=== PATIENT | male | born 1955 | race Caucasian/White ===

== ENCOUNTER → 2018-07-12 03:50 | Outpatient (CLI) | payer OTHER, SELFPAY ==
[2018-07-12 14:00] LABS: INR 2.4 (1.0-3.5); Prothrombin Time 22.5 sec (9.3-10.8)
== END ==
PROVIDERS: PCP Family Medicine; Visit Provider Family Medicine
DX: I26.99 Other pulmonary embolism without acute cor pulmonale (principal); Z79.01 Long term (current) use of anticoagulants
CPT/HCPCS: 36415; 85610

== ENCOUNTER 2018-08-17 00:06 | Outpatient (CLI) | payer OTHER, SELFPAY ==
[2018-08-17 10:07] LABS: Absolute Basophil Count 0.04 k/cumm (0.0-0.2); Absolute Eosinophil Count 0.11 k/cumm (0.0-0.7); Absolute Lymphocyte Count 1.87 k/cumm (1.2-3.4); Absolute Monocyte Count 0.47 k/cumm (0.11-0.7); Absolute Neutrophil Count 3.54 k/cumm (1.2-6.7); Basophils % 0.7; Eosinophils % 1.8; HCT 45.6 % (40.0-50.0); Mean Corp. HGB Concentration 35.1 g/dL (32.0-36.0); Mean Corpuscular Hemoglobin 32.2 pg (27.0-33.0); Mean Corpuscular Volume 91.8 fL (80-95); Mean Platelet Volume 10.5 fL (8.0-11.0); Monocytes % 7.8; Neutrophils % 58.7; Platelet Count 169 x1000/uL (130-400); RBC 4.97 m/cumm (4.50-6.00); RBC Distribution Width 12.9 % (11.8-14.1); White Blood Cell Count 6.03 k/cumm (4.4-10.8)
[2018-08-17 10:11] LABS: INR 2.2 (1.0-3.5); Prothrombin Time 21.2 sec (9.3-10.8)
[2018-08-17 11:47] LABS: Anion Gap 8.2 mmol/L (3-11); BUN 19 mg/dL (7-18); CO2 26.8 mmol/L (21.0-32.0); CREATININE 1.23 mg/dL (0.70-1.30); Chloride 105 mmol/L (98-107); Estimated GFR 59.06 (mL/min/1.73m2); Glucose 85 mg/dL (70-100); PHOSPHORUS 2.2 mg/dL (2.6-4.7); Potassium 4.6 mmol/L (3.5-5.1); Sodium 140 mmol/L (136-145)
[2018-08-17 12:01] LABS: Cholesterol 168 mg/dL (50-200); HDL Cholesterol 40 mg/dL (40-60); LDL CHOLESTEROL 104 mg/dL (<100); Triglyceride 128 mg/dL (30-150)
[2018-08-18 08:21] LABS: Hemoglobin A1C 5.3 % (4.5-6.2)
== END 2018-08-17 00:26 ==
PROVIDERS: PCP Family Medicine; Visit Provider Family Medicine
DX: I26.99 Other pulmonary embolism without acute cor pulmonale (principal); Z79.01 Long term (current) use of anticoagulants; E78.5 Hyperlipidemia, unspecified; I10 Essential (primary) hypertension; E74.39 Other disorders of intestinal carbohydrate absorption; E83.39 Other disorders of phosphorus metabolism
CPT/HCPCS: 36415; 80048; 80061; 83721; 85027; 83036; 84100; 85025; 85610

== ENCOUNTER 2018-09-21 00:09 | Outpatient (CLI) | payer OTHER, SELFPAY ==
[2018-09-21 11:01] LABS: INR 2.5 (1.0-3.5); Prothrombin Time 23.8 sec (9.3-10.8)
== END 2018-09-21 00:29 ==
PROVIDERS: PCP Family Medicine; Visit Provider Family Medicine
DX: I26.99 Other pulmonary embolism without acute cor pulmonale (principal); Z79.01 Long term (current) use of anticoagulants
CPT/HCPCS: 85610

== ENCOUNTER 2018-10-19 00:34 | Outpatient (CLI) | payer OTHER, SELFPAY ==
[2018-10-19 11:18] LABS: INR 2.1 (1.0-3.5); Prothrombin Time 19.9 sec (9.3-10.8)
== END 2018-10-19 00:54 ==
PROVIDERS: PCP Family Medicine; Visit Provider Family Medicine
DX: I26.99 Other pulmonary embolism without acute cor pulmonale (principal); Z79.01 Long term (current) use of anticoagulants
CPT/HCPCS: 36415; 85610

== ENCOUNTER 2018-11-27 12:55 | Outpatient (CLI) | payer OTHER, SELFPAY ==
[2018-11-27 14:40] LABS: INR 2.1 (1.0-3.5); Prothrombin Time 21.2 sec (9.3-11.0)
== END 2018-11-27 13:15 ==
PROVIDERS: PCP Family Medicine; Visit Provider Family Medicine
DX: I26.99 Other pulmonary embolism without acute cor pulmonale (principal); Z79.01 Long term (current) use of anticoagulants
CPT/HCPCS: 36415; 85610

== ENCOUNTER 2018-12-28 08:44 | Outpatient (CLI) | payer OTHER, SELFPAY ==
[2018-12-28 11:16] LABS: INR 2.2 (0.9-1.1); Prothrombin Time 22.2 sec (9.3-11.0)
== END 2018-12-28 09:04 ==
PROVIDERS: PCP Family Medicine; Visit Provider Family Medicine
DX: I26.99 Other pulmonary embolism without acute cor pulmonale (principal); Z79.01 Long term (current) use of anticoagulants
CPT/HCPCS: 36415; 85610

== ENCOUNTER 2019-01-27 07:02 | Outpatient (CLI) | payer OTHER, SELFPAY | END 2019-01-27 07:22 | PROVIDERS: PCP Family Medicine; Visit Provider Family Medicine | DX: I26.99 Other pulmonary embolism without acute cor pulmonale (principal); Z79.01 Long term (current) use of anticoagulants | CPT/HCPCS: 36415; 85610 ==

== ENCOUNTER 2019-02-18 10:26 | Outpatient (CLI) | payer OTHER, SELFPAY ==
[2019-02-18 13:31] LABS: INR 2.3 (0.9-1.1); Prothrombin Time 22.9 sec (9.3-11.0)
== END 2019-02-18 10:46 ==
PROVIDERS: PCP Family Medicine; Visit Provider Family Medicine
DX: I26.99 Other pulmonary embolism without acute cor pulmonale (principal); Z79.01 Long term (current) use of anticoagulants
CPT/HCPCS: 36415; 85610

== ENCOUNTER 2019-03-11 13:19 | Outpatient (CLI) | payer OTHER, SELFPAY ==
[2019-03-11 15:01] LABS: Prothrombin Time 20.5 sec (9.3-11.0)
== END 2019-03-11 13:39 ==
PROVIDERS: PCP Family Medicine; Visit Provider Family Medicine
DX: I26.99 Other pulmonary embolism without acute cor pulmonale (principal); Z79.01 Long term (current) use of anticoagulants
CPT/HCPCS: 36415; 85610

== ENCOUNTER 2019-04-11 07:41 | Outpatient (CLI) | payer OTHER, SELFPAY ==
[2019-04-11 16:35] LABS: INR 1.6 (0.9-1.1); Prothrombin Time 16.3 sec (9.3-11.0)
== END 2019-04-11 08:01 ==
PROVIDERS: PCP Family Medicine; Visit Provider Family Medicine
DX: I26.99 Other pulmonary embolism without acute cor pulmonale (principal); Z79.01 Long term (current) use of anticoagulants
CPT/HCPCS: 36415; 85610

== ENCOUNTER 2019-04-26 09:02 | Outpatient (CLI) | payer OTHER, SELFPAY ==
[2019-04-26 09:42] LABS: Prothrombin Time 19.7 sec (9.3-11.0)
== END 2019-04-26 09:22 ==
PROVIDERS: PCP Family Medicine; Visit Provider Family Medicine
DX: I26.99 Other pulmonary embolism without acute cor pulmonale (principal); Z79.01 Long term (current) use of anticoagulants
CPT/HCPCS: 36415; 85610

== ENCOUNTER 2019-05-20 01:45 | Outpatient (CLI) | payer OTHER, SELFPAY ==
[2019-05-20 14:01] LABS: INR 2.8 (0.9-1.1); Prothrombin Time 28.6 sec (9.3-11.0)
== END 2019-05-20 02:05 ==
PROVIDERS: PCP Family Medicine; Visit Provider Family Medicine
DX: I26.99 Other pulmonary embolism without acute cor pulmonale (principal); Z79.01 Long term (current) use of anticoagulants
CPT/HCPCS: 36415; 85610

== ENCOUNTER 2019-06-19 01:59 | Outpatient (CLI) | payer OTHER, SELFPAY ==
[2019-06-19 13:12] LABS: INR 2.3 (0.9-1.1); Prothrombin Time 23.5 sec (9.3-11.0)
== END 2019-06-19 02:19 ==
PROVIDERS: PCP Family Medicine; Visit Provider Family Medicine
DX: I26.99 Other pulmonary embolism without acute cor pulmonale (principal); Z79.01 Long term (current) use of anticoagulants
CPT/HCPCS: 36415; 85610

== ENCOUNTER 2019-08-01 03:51 | Outpatient (CLI) | payer OTHER, SELFPAY ==
[2019-08-01 12:34] LABS: Abs Immature Grans 0.01 k/cumm (0.0-0.09); Absolute Basophil Count 0.05 k/cumm (0.0-0.2); Absolute Eosinophil Count 0.15 k/cumm (0.0-0.7); Absolute Lymphocyte Count 2.08 k/cumm (1.2-3.4); Absolute Monocyte Count 0.68 k/cumm (0.11-0.7); Absolute Neutrophil Count 4.13 k/cumm (1.2-6.7); Basophils % 0.7; Eosinophils % 2.1; HCT 46.5 % (40.0-50.0); HGB 16.4 g/dL (13.5-17.5); Immature Grans % 0.1; Lymphocytes % 29.3; Mean Corp. HGB Concentration 35.3 g/dL (32.0-36.0); Mean Corpuscular Hemoglobin 32.4 pg (27.0-33.0); Mean Corpuscular Volume 91.9 fL (80-95); Mean Platelet Volume 10.4 fL (8.0-11.0); Monocytes % 9.6; Neutrophils % 58.2; Platelet Count 201 x1000/uL (130-400); RBC 5.06 m/cumm (4.50-6.00); RBC Distribution Width 12.6 % (11.8-14.1)
[2019-08-01 14:01] LABS: ALT 29 U/L (16-63); AST 20 U/L (15-37); Albumin 4.1 g/dL (3.4-5.0); Alkaline Phosphatase 92 U/L (46-116); Anion Gap 10.8 mmol/L (3-11); BUN 26 mg/dL (7-18); Bilirubin, Total 0.8 mg/dL (0.2-1.0); CO2 26.2 mmol/L (21.0-32.0); CREATININE 1.34 mg/dL (0.70-1.30); Calcium 10.1 mg/dL (8.5-10.1); Calculated LDL 114 mg/dL; Chloride 103 mmol/L (98-107); Cholesterol 185 mg/dL (50-200); Estimated GFR 53.33 (mL/min/1.73m2); Glucose 90 mg/dL (70-100); HDL Cholesterol 40 mg/dL (40-60); Potassium 4.6 mmol/L (3.5-5.1); Sodium 140 mmol/L (136-145); Total Protein 7.7 g/dL (6.4-8.2); Triglyceride 155 mg/dL (30-150)
[2019-08-01 14:59] LABS: PHOSPHORUS 3.1 mg/dL (2.6-4.7)
== END 2019-08-01 04:11 ==
PROVIDERS: PCP Family Medicine; Visit Provider Family Medicine
DX: M25.551 Pain in right hip (principal); I10 Essential (primary) hypertension; E78.5 Hyperlipidemia, unspecified; E55.9 Vitamin D deficiency, unspecified; E83.39 Other disorders of phosphorus metabolism
CPT/HCPCS: 36415; 80053; 80061; 82306; 84100; 85025

== ENCOUNTER 2019-08-11 01:30 | Outpatient (CLI) | payer OTHER, SELFPAY ==
[2019-08-11 09:21] LABS: INR 2.1 (0.9-1.1); Prothrombin Time 21.4 sec (9.3-11.0)
== END 2019-08-11 01:50 ==
PROVIDERS: PCP Family Medicine; Visit Provider Family Medicine
DX: I26.99 Other pulmonary embolism without acute cor pulmonale (principal); Z79.01 Long term (current) use of anticoagulants
CPT/HCPCS: 36415; 85610

== ENCOUNTER 2019-09-09 08:19 | Outpatient (CLI) | payer OTHER, SELFPAY ==
[2019-09-09 12:57] LABS: Prothrombin Time 21.2 sec (9.3-11.0)
[2019-09-09 14:02] LABS: INR 2.1 (0.9-1.1)
== END 2019-09-09 08:39 ==
PROVIDERS: PCP Family Medicine; Visit Provider Family Medicine
DX: I26.99 Other pulmonary embolism without acute cor pulmonale (principal); Z79.01 Long term (current) use of anticoagulants
CPT/HCPCS: 36415; 85610

== ENCOUNTER 2019-10-15 08:24 | Outpatient (CLI) | payer OTHER, SELFPAY ==
[2019-10-15 10:32] LABS: INR 2.5 (0.9-1.1); Prothrombin Time 24.6 sec (9.3-11.0)
== END 2019-10-15 08:44 ==
PROVIDERS: PCP Family Medicine; Visit Provider Family Medicine
DX: I26.99 Other pulmonary embolism without acute cor pulmonale (principal); Z79.01 Long term (current) use of anticoagulants
CPT/HCPCS: 36415; 85610

== ENCOUNTER 2019-11-12 01:18 | Outpatient (CLI) | payer OTHER, SELFPAY ==
[2019-11-12 09:12] LABS: INR 2.3 (0.9-1.1)
== END 2019-11-12 01:38 ==
PROVIDERS: PCP Family Medicine; Visit Provider Family Medicine
DX: I26.99 Other pulmonary embolism without acute cor pulmonale (principal); Z79.01 Long term (current) use of anticoagulants
CPT/HCPCS: 36415; 85610

== ENCOUNTER 2019-12-15 08:31 | Outpatient (CLI) | payer OTHER, SELFPAY ==
[2019-12-15 13:48] LABS: INR 3.2 (0.9-1.1); Prothrombin Time 31.2 sec (9.3-11.0)
== END 2019-12-15 08:51 ==
PROVIDERS: PCP Family Medicine; Visit Provider Family Medicine
DX: I26.99 Other pulmonary embolism without acute cor pulmonale (principal); Z79.01 Long term (current) use of anticoagulants
CPT/HCPCS: 36415; 85610

== ENCOUNTER 2019-12-29 08:02 | Outpatient (REF) | payer OTHER, SELFPAY ==
[2019-12-29 11:48] LABS: INR 2.8 (0.9-1.1); Prothrombin Time 27.6 sec (9.3-11.0)
== END 2019-12-29 08:22 ==
LOC: LOS 08:02
PROVIDERS: PCP Family Medicine; Visit Provider Family Medicine
DX: I26.99 Other pulmonary embolism without acute cor pulmonale (principal); Z79.01 Long term (current) use of anticoagulants
CPT/HCPCS: 36415; 85610

== ENCOUNTER 2020-02-18 11:58 | Outpatient (CLI) | payer OTHER, SELFPAY ==
[2020-02-18 13:08] LABS: INR 3.4 (0.9-1.1); Prothrombin Time 33.1 sec (9.3-11.0)
== END 2020-02-18 12:18 ==
PROVIDERS: PCP Family Medicine; Visit Provider Family Medicine
DX: I26.99 Other pulmonary embolism without acute cor pulmonale (principal); Z79.01 Long term (current) use of anticoagulants
CPT/HCPCS: 36415; 85610

== ENCOUNTER 2020-02-23 11:02 | Outpatient (CLI) | payer OTHER, SELFPAY ==
[2020-02-23 15:10] LABS: Prothrombin Time 20.2 sec (9.3-11.0)
== END 2020-02-23 11:22 ==
PROVIDERS: PCP Family Medicine; Visit Provider Family Medicine
DX: I26.99 Other pulmonary embolism without acute cor pulmonale (principal); Z79.01 Long term (current) use of anticoagulants
CPT/HCPCS: 36415; 85610

== ENCOUNTER 2020-03-04 01:36 | Outpatient (CLI) | payer OTHER, SELFPAY ==
[2020-03-04 13:15] LABS: INR 2.3 (0.9-1.1); Prothrombin Time 22.8 sec (9.3-11.0)
== END 2020-03-04 01:56 ==
PROVIDERS: PCP Family Medicine; Visit Provider Family Medicine
DX: I26.99 Other pulmonary embolism without acute cor pulmonale (principal); Z79.01 Long term (current) use of anticoagulants
CPT/HCPCS: 36415; 85610

== ENCOUNTER 2020-05-14 04:08 | Outpatient (CLI) | payer OTHER, SELFPAY ==
[2020-05-14 15:27] LABS: INR 3.3 (0.9-1.1); Prothrombin Time 32.4 sec (9.3-11.0)
== END 2020-05-14 04:28 ==
PROVIDERS: PCP Family Medicine; Visit Provider Family Medicine
DX: Z86.711 Personal history of pulmonary embolism (principal); Z79.01 Long term (current) use of anticoagulants
CPT/HCPCS: 36415; 85610

== ENCOUNTER 2020-09-16 04:06 | Outpatient (CLI) | payer OTHER, SELFPAY ==
[2020-09-16 12:47] LABS: INR 1.7 (0.9-1.1); Prothrombin Time 16.7 sec (9.3-11.0)
== END 2020-09-16 04:26 ==
PROVIDERS: PCP Family Medicine; Visit Provider Family Medicine
DX: Z79.01 Long term (current) use of anticoagulants (principal); Z86.711 Personal history of pulmonary embolism
CPT/HCPCS: 36415; 85610

== ENCOUNTER 2020-09-29 03:17 | Outpatient (CLI) | payer OTHER, SELFPAY ==
[2020-09-29 11:08] LABS: Prothrombin Time 21.2 sec (9.3-11.0)
[2020-09-29 11:14] LABS: INR 2.1 (0.9-1.1)
== END 2020-09-29 03:37 ==
PROVIDERS: PCP Family Medicine; Visit Provider Family Medicine
DX: Z79.01 Long term (current) use of anticoagulants (principal); Z86.711 Personal history of pulmonary embolism
CPT/HCPCS: 36415; 85610

== ENCOUNTER 2020-10-20 02:55 | Outpatient (CLI) | payer OTHER, SELFPAY ==
[2020-10-20 12:16] LABS: INR 2.3 (0.9-1.1); Prothrombin Time 22.6 sec (9.3-11.0)
== END 2020-10-20 03:15 ==
PROVIDERS: PCP Family Medicine; Visit Provider Family Medicine
DX: Z79.01 Long term (current) use of anticoagulants (principal); I26.99 Other pulmonary embolism without acute cor pulmonale
CPT/HCPCS: 36415; 85610

== ENCOUNTER 2020-11-25 03:07 | Outpatient (CLI) | payer OTHER, SELFPAY ==
[2020-11-25 07:17] LABS: Abs Immature Grans 0.01 10^3/uL (0.0-0.06); Absolute Basophil Count 0.07 10^3/uL (0.0-0.2); Absolute Eosinophil Count 0.14 10^3/uL (0.0-0.7); Absolute Lymphocyte Count 1.97 10^3/uL (1.2-3.4); Absolute Monocyte Count 0.55 10^3/uL (0.1-0.8); Absolute Neutrophil Count 2.62 10^3/uL (1.2-6.7); Basophils % 1.3; Eosinophils % 2.6; HCT 45.7 % (40.0-50.0); HGB 16.3 g/dL (13.5-17.5); Immature Grans % 0.2; Lymphocytes % 36.8; MCH 33.3 pg (27.0-33.0); MCHC 35.7 % (32.0-36.0); MCV 93.3 fL (80-95); MPV 9.6 fL (8.0-11.0); Monocytes % 10.3; Neutrophils % 48.8; Nucleated RBC 0 %; Platelet Count 173 10^3/uL (130-400); RDW 12.1 % (11.8-14.1); RDW-SD 41.7 fL; WBC 5.36 10^3/uL (4.4-10.8)
[2020-11-25 07:28] LABS: INR 1.8 (0.9-1.1)
[2020-11-25 08:49] LABS: Anion Gap 6.6 mmol/L (3-11); BUN 22 mg/dL (7-18); CO2 29.4 mmol/L (21.0-32.0); CREATININE 1.39 mg/dL (0.70-1.30); Calcium 9.6 mg/dL (8.5-10.1); Calculated LDL 130 mg/dL (<100); Chloride 104 mmol/L (98-107); Cholesterol 198 mg/dL (<200); Estimated GFR 50.97 (mL/min/1.73m2); Glucose 87 mg/dL (74-106); HDL Cholesterol 41 mg/dL (40-60); Sodium 140 mmol/L (136-145); Triglyceride 136 mg/dL (<150)
[2020-11-25 09:11] LABS: PHOSPHORUS 2.6 mg/dL (2.6-4.7)
== END 2020-11-25 03:27 ==
PROVIDERS: PCP Family Medicine; Visit Provider Family Medicine
DX: E83.39 Other disorders of phosphorus metabolism (principal); I10 Essential (primary) hypertension; E78.5 Hyperlipidemia, unspecified; Z86.711 Personal history of pulmonary embolism; Z79.01 Long term (current) use of anticoagulants
CPT/HCPCS: 36415; 80048; 80061; 84100; 85025; 85610

== ENCOUNTER 2021-01-04 02:30 | Outpatient (CLI) | payer OTHER, SELFPAY ==
[2021-01-04 14:07] LABS: INR 1.9 (0.9-1.1)
== END 2021-01-04 02:31 | disposition home or self-care (01) ==
LOC: LBO 02:30
PROVIDERS: PCP Family Medicine; Visit Provider Family Medicine
DX: Z86.711 Personal history of pulmonary embolism (principal); Z79.01 Long term (current) use of anticoagulants
CPT/HCPCS: 36415; 85610